=== PATIENT | male | born 2000 | race African-American/Black ===

== ENCOUNTER 2022-09-23 19:35 | Emergency (ER) | payer SELFPAY | END 2022-09-23 21:36 | disposition home or self-care (01) | LOC: CSHERS 19:35 | DX: H65.93 Unspecified nonsuppurative otitis media, bilateral (principal); H60.93 Unspecified otitis externa, bilateral; H73.93 Unspecified disorder of tympanic membrane, bilateral | CPT/HCPCS: 99282 ==

== ENCOUNTER 2022-10-31 15:22 | Emergency (ER) | payer SELFPAY | END 2022-10-31 15:57 | disposition home or self-care (01) | LOC: CSHERS 15:22 | DX: H92.02 Otalgia, left ear (principal) | CPT/HCPCS: 99282 ==

== ENCOUNTER 2023-01-17 12:01 | Emergency (ER) | payer SELFPAY ==
[2023-01-17 12:30] LABS: Bilirubin Neg (Negative); Blood, Urine 50 (Negative); Clarity Cloudy (Clear); Glucose, Urine (Dipstick) Normal (Negative); Ketone, Urine Negative (Negative); Leukocyte 500 (Negative); Nitrite Negative (Negative); Protein, Urine (Dipstick) 15 mg/dl (Neg-Trace); Urobilinogen Normal mg/dL (Less than 2)
[2023-01-17 12:45] LABS: WBC/HPF 21-50 HPF (0-3)
[2023-01-17 12:46] LABS: Bacteria/HPF Rare-Few HPF (None Seen); Renal Epithelial 0-3 HPF (None Seen); Squamous Epithelial None Seen HPF (0-3)
[2023-01-17] MEDS ORDERED: cefTRIAXone (ROCEPHIN) 500 MG VIAL ONE (12:48)
[2023-01-17] MEDS ORDERED: Sterile Water 10 ML ONE (12:49)
[2023-01-17] MEDS ORDERED: Azithromycin 250 MG TAB ONE (12:49)
[2023-01-18 12:24] LABS: Chlam.trachomatis by PCR,Urine Not Detected (NotDetected); GC N.gonorrhoeae PCR,UrineVOID DETECTED (NotDetected)
== END 2023-01-17 13:11 | disposition home or self-care (01) ==
LOC: CSHERS 12:01
DX: N34.2 Other urethritis (principal); F17.210 Nicotine dependence, cigarettes, uncomplicated
CPT/HCPCS: 81003; 81015; 87491; 87591; 96372; 99283; J0696